=== PATIENT | female | born 1945 | race Two or more races ===

== ENCOUNTER 2018-08-28 05:20 | Day surgery (SDC) | payer OTHER ==
[~2018-08-28 05:20] MED LIST: ASPIR 8181 MG PO; BONIVA PO; CLONAZEPAM0.5 MG PO; GABAPENTIN100 MG PO; LEVOTHYROXINE25 MCG PO; PRINIVIL20 MG PO; RESTORIL15 M1 PO; TOPROL XL25 M1 PO
[2018-08-28] MEDS ORDERED: ULTRACET PO (08:44)
[2018-08-28] MEDS ORDERED: MACROBID 100 M100 MG PO (08:44)
== END 2018-08-28 11:55 | disposition home or self-care (01) ==
LOC: CIR.AMB 05:20
DX: N81.3 Complete uterovaginal prolapse (principal)